=== PATIENT | male | born 1960 | race Caucasian/White ===

== ENCOUNTER 2021-11-07 17:04 | Emergency (ER) | payer BC, SELFPAY ==
--- NOTE | ~2021-11-07 | US_ITS ---
EXAMINATION: US ABDOMEN LIMITED CLINICAL INFORMATION: Right upper quadrant pain. COMPARISON: None TECHNIQUE: Real-time imaging of the gallbladder only was performed. FINDINGS: GALLBLADDER: The gallbladder is physiologically distended without evidence of stones, sludge, polyps, wall thickening or pericholecystic fluid. Normal in caliber measuring 0.3 cm in diameter. Incidental note made of probable hepatic steatosis. US/US abdomen limited IMPRESSION: Normal-appearing gallbladder.
[2021-11-07 17:21] VITALS: BP 155/104; PULSE 88; RESP 18; TEMP 36.7; O2SAT 97; BMI 34.4
[2021-11-07 17:43] LABS: MANUAL DIFF FLAG NO
[2021-11-07 17:45] LABS: Basophils Percent Auto 0.3 % (0-2); Hematocrit 48.6 % (42.0-52.0); Hemoglobin 16.1 g/dl (14.0-18.0); Imm Gran Abs Auto 0.04 X10*3/uL (0.00-0.03); Imm Gran Pct Auto 0.3 % (0.0-0.4); Lymphocytes Percent Auto 8.9 % (20-40); Mean Corpuscular HGB Conc 33.1 g/dl (31.0-36.0); Mean Corpuscular Hemoglobin 28.9 pg (27.0-33.0); Mean Corpuscular Volume 87.3 fL (80.0-98.0); Mean Platelet Volume 9.1 fL (9.4-12.4); Monocytes Absolute Auto 0.3 X10*3/uL (0.1-1.2); Monocytes Percent Auto 2.7 % (2-11); Neutrophils Absolute Auto 10.3 x10*3/uL (2.0-8.3); Neutrophils Percent Auto 87.8 % (45-73); Platelet Count 327 X10*3/uL (160-400); Red Blood Count 5.57 X10*6/uL (4.60-5.80); Red Cell Distribution Width 13.9 % (11.0-16.0); White Blood Count 11.7 X10*3/uL (4.8-10.8)
[2021-11-07 17:59] LABS: Anion Gap 17 (12-20); Blood Urea Nitrogen 14 mg/dL (9-16); COVID-19 Test Negative (Negative); Calcium 9.4 mg/dL (8.4-10.2); Carbon Dioxide 23 mmol/L (22-29); Chloride 104 mmol/L (96-108); Creatinine Clr Calc Pharmacy 107.6; Estimated Glomerular Filt Rate > 60; Glucose Random 147 mg/dL (60-115); IDNOW Serial# 55D5AD1C; Potassium 4.3 mmol/L (3.3-5.1); Sodium 140 mmol/L (135-145)
[2021-11-07 22:00] VITALS: BP 154/78; PULSE 60; RESP 18; TEMP 36.8; O2SAT 96
[2021-11-07 22:29] LABS: Alanine Aminotransferase 26 U/L (0-40); Albumin Level 4.5 g/dL (3.5-5.0); Alkaline Phosphatase 66 U/L (39-117); Aspartate Amino Transferase 17 U/L (5-37); Bilirubin Direct 0.3 mg/dL (0.0-0.5); Bilirubin Total 0.6 mg/dL (0.0-1.0); Lipase 30 U/L (8-78); Total Protein 7.6 g/dL (6.5-8.0)
--- NOTE | 2021-11-07 22:48 | ED.NAVMDI ---
HPI - Nausea/Vomiting/Diarrhea General Chief complaint: Nausea/Vomiting/Diarrhea Stated complaint: vomitting Time Seen by Provider: 11/07/21 18:52 Source: patient Mode of arrival: ambulatory Limitations: no limitations History of Present Illness HPI Narrative: 61-year-old male with history of GERD on 40 mg of omeprazole daily, hypertension, hyperlipidemia here with reports of vomiting for the last 8 hours with associated epigastric pain. No diarrhea, constipation, urinary symptoms, fevers or chills. Patient tells me that he has episodes that are similar to this that occur the last for several hours and self-resolved. Tells me these episodes have been occurring over last 2 months. He did call his town justice and has an appointment in 2 weeks to be seen. He tells me that the emesis is nonbilious and nonbloody. He does have history of drinking alcohol 4-5 times weekly but tells me since this occurred he has decreased his alcohol intake. He does smoke cigarettes. He also noted today that when he was moving his bowels they were blood streaked. He tells me this occurs when he is straining to move his bowels. Associated nausea: No Related Data Previous Rx's Medication Instructions Recorded ondansetron 4 mg disintegrating 4 mg PO Q6H PRN #10 tab 11/07/21 tablet sucralfate 1 gram tablet (Carafate) 1 g PO .achs #60 tab 11/07/21 Allergies Allergy/AdvReac Type Severity Reaction Status Date / Time No Known Allergies Allergy Verified 11/07/21 22:11 Review of Systems Review of Systems: Yes all other systems are reviewed and are negative Constitutional: Constitutional: Reports no additional constitutional complaints, Denies body ache(s), Denies chills, Denies fever(s), Denies headache(s) and Denies weakness Eyes: Eyes: Reports no additional eye complaints and Denies change in vision ENT: Reports system reviewed and no additional complaints, except as documented, Denies dizziness, Denies headache(s), Denies nasal congestion, Denies nasal discharge and Denies neck pain Cardiovascular: Cardiovascular: Reports no additional cardiovascular complaints, Denies chest pain, Denies leg edema and Denies dyspnea Respiratory: Respiratory: Reports no additional respiratory complaints, Denies cough and Denies dyspnea Gastrointestinal: Gastrointestinal: Reports no additional gastrointestinal complaints, Reports abdominal pain, Reports hematochezia, Denies diarrhea, Denies nausea and Reports vomiting Genitourinary: Genitourinary: Denies urinary incontinence Musculoskeletal: Musculoskeletal: Reports no additional musculoskeletal complaints, Denies back pain, Denies arthralgias, Denies joint swelling, Denies neck pain, Denies numbness and Denies tingling Integumentary/Breasts: Skin/Breast: Reports system reviewed and no additional complaints, except as docu and Denies rash Neurologic: Reports system reviewed and no additional complaints, except as documented, Denies Abnormal speech present, Denies dizziness, Denies headache(s), Denies numbness, Denies tingling and Denies weakness PMFSH Past Medical History Attestation statement: The following information was validated with the patient. Source: old records reviewed and nursing notes reviewed Social History Social History Advance Directives: No Advance Directives Information Provided: No Physical Exam Vital Signs: Vital Signs: Last Vital Signs Temp 98.3 F 11/07/21 22:00 Pulse 60 11/07/21 22:00 Resp 18 11/07/21 22:00 BP 178/10 H 11/07/21 22:00 Pulse Ox 96 11/07/21 22:00 BMI result Body Mass Index 34.4 Const: General: cooperative, healthy appearing, comfortable and no acute distress Orientation/consciousness: patient oriented x3 Limitations: no limitations HENMT: Head: Yes normal to inspection Ears: hearing grossly normal bilaterally General nose exam: Normal external nose present Face and sinus: Yes normal facial exam Mouth: Normal oral and palatal mucosa present Throat: Yes posterior oropharynx normal Eyes: General: appearance normal, both eyes and all related structures Pupils: Equal, round and reactive pupils present Neck: Neck: Yes normal visual inspection Chest: Chest palpation & inspection: normal inspection of the chest Resp: Effort & Inspection: normal respiratory effort Auscultation: clear to auscultation bilaterally Cardio: Rate: regular rate Rhythm: regular rhythm Peripheral pulses: Peripheral pulses 2+ throughout GI: Other: Regina RN beater room helper present-rectal exam shows brown stool Inspection: Yes normal to inspection Palpation (GI): Soft to palpation and Tenderness to palpation present (GI) (Mild, no rebound or guarding ) in the epigastrum Auscultation: normal bowel sounds Back/Spine/Pelvis: Thoracic/Lumbar Spine: thoracic and lumbar spine normal to inspection Skin: General skin exam: no rashes or lesions noted Neuro: General: patient oriented x3, no focal motor deficits and normal sensation to monofilament Cranial nerves: Yes Equal, round and reactive pupils present Cognition (Neuro): normal cognition Speech: No Abnormal speech present Gait exam (Neuro): Normal gait present Motor exam (neuro): 5/5 motor strength present throughout Extrem: General: Yes normal to inspection, Yes no pedal edema and Yes no calf tenderness Course Course Course Narrative: 61 yo male here with reports of intermittent episodes of nausea/vomiting with epigastric pain x 2 months. Patient is unable to tell me what causes these episodes but after about 10-12 hrs they seem to resolve on their own. No associated fevers, chills, diarrhea or constipation. Patient tells me in the last week he has had 3 episodes and they seem to be occurring more frequently. He did call town justice knee is appointment 2 weeks. Today he had vomiting for about 8 hours which prompted him to come to the emergency department to be seen. On my exam. The patient has mild epigastric discomfort when rebound or guarding. He is sipping on some jake latrell. Complaining of some pain and nausea. Also c/o intermittent blood in stool when straining to move his bowels. Labs are reviewed which are unremarkable. Abdominal ultrasound is negative for acute cholecystitis. COVID screen is negative. Patient received IV fluids, Zofran and a GI cocktail as well as a PPI with some improvement of symptoms. He is able to drink is jake latrell and is feeling improved overall. Occult stool negative for blood. Stool is brown on appearance. Likely gastritis. Recommend he keep his appointment with his town justice and he has plans for endoscopy and colonoscopy. Reviewed worrisome signs and symptoms when to return to the emergency department. Comfortable discharge home. MDM - Nausea/Vomiting/Diarrhea Medical Records Attestation: I reviewed the patient's medical records. Lab Data Attestation: I reviewed the patient's lab results. Result diagrams: 11/07/21 17:39 11/07/21 17:39 Labs: Lab Results 11/07/21 11/07/21 11/07/21 Range/Units 17:39 17:39 17:39 WBC 11.7 H (4.8-10.8) X10*3/uL RBC 5.57 (4.60-5.80) X10*6/uL Hgb 16.1 (14.0-18.0) g/dl Hct 48.6 (42.0-52.0) % MCV 87.3 (80.0-98.0) fL MCH 28.9 (27.0-33.0) pg MCHC 33.1 (31.0-36.0) g/dl RDW 13.9 (11.0-16.0) % Plt Count 327 (160-400) X10*3/uL MPV 9.1 L (9.4-12.4) fL Immature Gran % (Auto) 0.3 (0.0-0.4) % Neut % (Auto) 87.8 H (45-73) % Lymph % (Auto) 8.9 L (20-40) % Drew % (Auto) 2.7 (2-11) % Eos % (Auto) 0.0 (0-4) % Baso % (Auto) 0.3 (0-2) % Lymph # (Auto) 1.0 L (1.2-4.9) X10*3/uL Drew # (Auto) 0.3 (0.1-1.2) X10*3/uL Eos # (Auto) 0.0 (0.0-0.4) X10*3/uL Baso # (Auto) 0.0 (0.0-0.2) X10*3/uL Abs Immat Gran (auto) 0.04 H (0.00-0.03) X10*3/uL Absolute Neuts (auto) 10.3 H (2.0-8.3) x10*3/uL Absolute Nucleated RBC 0.000 (0.0-0.012) X10*3/uL Nucleated RBC % (auto) 0.0 (0.0-0.2) /100WBC Sodium 140 (135-145) mmol/L Potassium 4.3 (3.3-5.1) mmol/L Chloride 104 (96-108) mmol/L Carbon Dioxide 23 (22-29) mmol/L Anion Gap 17 (12-20) BUN 14 (9-16) mg/dL Creatinine 0.89 (0.5-1.4) mg/dL Estim Creat Clear Calc 107.6 Estimated GFR > 60 Random Glucose 147 H (60-115) mg/dL Calcium 9.4 (8.4-10.2) mg/dL Total Bilirubin 0.6 (0.0-1.0) mg/dL Direct Bilirubin 0.3 (0.0-0.5) mg/dL AST 17 (5-37) U/L ALT 26 (0-40) U/L Alkaline Phosphatase 66 (39-117) U/L Total Protein 7.6 (6.5-8.0) g/dL Albumin 4.5 (3.5-5.0) g/dL Lipase 30 (8-78) U/L Stool Occult Blood (NEGATIVE) COVID-19 ([facility]) Negative (Negative) COVID-19 Clin Com See Note 11/07/21 Range/Units 23:29 WBC (4.8-10.8) X10*3/uL RBC (4.60-5.80) X10*6/uL Hgb (14.0-18.0) g/dl Hct (42.0-52.0) % MCV (80.0-98.0) fL MCH (27.0-33.0) pg MCHC (31.0-36.0) g/dl RDW (11.0-16.0) % Plt Count (160-400) X10*3/uL MPV (9.4-12.4) fL Immature Gran % (Auto) (0.0-0.4) % Neut % (Auto) (45-73) % Lymph % (Auto) (20-40) % Drew % (Auto) (2-11) % Eos % (Auto) (0-4) % Baso % (Auto) (0-2) % Lymph # (Auto) (1.2-4.9) X10*3/uL Drew # (Auto) (0.1-1.2) X10*3/uL Eos # (Auto) (0.0-0.4) X10*3/uL Baso # (Auto) (0.0-0.2) X10*3/uL Abs Immat Gran (auto) (0.00-0.03) X10*3/uL Absolute Neuts (auto) (2.0-8.3) x10*3/uL Absolute Nucleated RBC (0.0-0.012) X10*3/uL Nucleated RBC % (auto) (0.0-0.2) /100WBC Sodium (135-145) mmol/L Potassium (3.3-5.1) mmol/L Chloride (96-108) mmol/L Carbon Dioxide (22-29) mmol/L Anion Gap (12-20) BUN (9-16) mg/dL Creatinine (0.5-1.4) mg/dL Estim Creat Clear Calc Estimated GFR Random Glucose (60-115) mg/dL Calcium (8.4-10.2) mg/dL Total Bilirubin (0.0-1.0) mg/dL Direct Bilirubin (0.0-0.5) mg/dL AST (5-37) U/L ALT (0-40) U/L Alkaline Phosphatase (39-117) U/L Total Protein (6.5-8.0) g/dL Albumin (3.5-5.0) g/dL Lipase (8-78) U/L Stool Occult Blood NEGATIVE (NEGATIVE) COVID-19 ([facility]) (Negative) COVID-19 Clin Com Imaging Data US - abdomen: Attestation: I personally reviewed and interpreted this imaging study as follows: Radiologist's impression: CLINICAL INFORMATION: Right upper quadrant pain. COMPARISON: None TECHNIQUE: Real-time imaging of the gallbladder only was performed. FINDINGS: GALLBLADDER: The gallbladder is physiologically distended without evidence of stones, sludge, polyps, wall thickening or pericholecystic fluid. Normal in caliber measuring 0.3 cm in diameter. Incidental note made of probable hepatic steatosis. US/US abdomen limited IMPRESSION: Normal-appearing gallbladder. Discharge Plan Discharge Clinical Impression: Abdominal pain Patient Disposition: Home, Self-Care Instructions: Abdominal Pain (ED) Additional Instructions: Your ultrasound, lab work, covid test are all normal Cassia diet Continue omeprazole keep appointment with your town justice as scheduled Start the carafate and take before meals and bed time Likely you have gastritis or irritation of the lining of the stomach best visualized on endoscopy Prescriptions: New sucralfate [Carafate] 1 gram tablet 1 g PO .achs Qty: 60 RF: 0 ondansetron 4 mg tablet,disintegrating 4 mg PO Q6H PRN (Reason: nausea and vomiting) Qty: 10 RF: 0 Interventions: ED Discharge Assessment Last Done: 11/08/21 00:02 Discharge Date/Time: 11/08/21 00:04
[2021-11-07] MEDS: Magnesium Hydrox/Alum Hydrox 30 ML ORAL.SUSP PO (22:50)
[2021-11-07] MEDS: Lidocaine HCl Viscous 2 % 15 ML SOLUTION MUCOUS MEM (22:50)
[2021-11-07] MEDS: ondansetron HCL 4 MG/2 ML VIAL IVPUSH (22:51)
[2021-11-07] MEDS: 0.9 % Sodium Chloride 1,000 ML 999 ML IV (22:51)
[2021-11-07] MEDS: Famotidine/PF 20 MG/2 ML VIAL IVPUSH (22:51)
[2021-11-07 23:52] LABS: OBS Int Ctl Valid YES; OBS1 NEGATIVE (NEGATIVE)
== END 2021-11-08 00:04 | disposition home or self-care (01) ==
PROVIDERS: Nurse Practitioner Family; Emergency Provider Emergency Medicine; PCP Family Medicine
DX: R10.9 Unspecified abdominal pain (principal); R11.10 Vomiting, unspecified; Z20.822 Contact with and (suspected) exposure to COVID-19; I10 Essential (primary) hypertension; E78.5 Hyperlipidemia, unspecified; K21.9 Gastro-esophageal reflux disease without esophagitis; F17.200 Nicotine dependence, unspecified, uncomplicated
CPT/HCPCS: 76705; 80048; 80076; 82272; 83690; 85025; 87635; 96361; 96374; 96375; 99284; J2405